=== PATIENT | female | born 2000 | race Two or more races ===

== ENCOUNTER 2020-06-01 03:38 | Inpatient (IN) | payer BC ==
[~2020-06-01 03:38] MED LIST: Bupivacaine 0.25% 10 ML SDV ONE
[2020-06-01] MEDS ORDERED: Ampicillin 2 GM in Sodium Chloride 0.9% 100 ML IV ONE (04:00)
[2020-06-01] MEDS ORDERED: Ondansetron 4 MG/2 ML SDV IVPUSH PRN ×2 (04:20→07:30)
[2020-06-01] MEDS ORDERED: Calcium Carbonate 500 MG Tab.Chew PO PRN (04:20)
[2020-06-01] MEDS ORDERED: Sodium Chloride 0.9% 10 ML Syringe FLUSH PRN (04:20)
[2020-06-01] MEDS ORDERED: Nalbuphine 10 MG/ML Syringe IVPUSH PRN (04:20)
[2020-06-01] MEDS ORDERED: Oxytocin/Lactated Ringers 10 UNIT/1,000 ML BAG IV SCH ×2 (04:30)
[2020-06-01] MEDS: Lactated Ringers 1,000 ML IV SCH ×3 (04:59→09:42)
[2020-06-01] MEDS ORDERED: Acetaminophen 325 MG Tab PO PRN ×2 (06:55→18:22)
--- NOTE | 2020-06-01 07:24 | PCM.LDHP ---
L&D History of Present Illness - General Date of Service: 06/01/20 Admit Problem/Dx: Patient Status Order with Admit Dx/Problem 06/01/20 03:49 Patient Status [ADT] Routine 06/01/20 04:20 Patient Status [ADT] Routine Admission Diagnosis/Problem Admission Diagnosis/Problem Source of Information: Patient History Limitations: Reports: No Limitations - History of Present Illness Introduction:: Patient is a 19 y/o at 39 5/7 wks who presented to L&D early this AM with complaints of SROM which occurred right before midnight. Currently doing well. Rates contractions as a 5/10 after being started on pitocin. 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 : 2 Para: 0 LMP (Approximate): Psychiatric History: Reports: Anxiety, Depression - Past Surgical History HEENT Surgical History: Reports: Tonsillectomy Female Surgical History: Reports: D&C Social & Family History - Tobacco Use Smoking Status *Q: Never Smoker - Alcohol Use Alcohol Use History: No - Recreational Drug Use Recreational Drug Use: No H&P Review of Systems - Review of Systems: Review Of Systems: See Below General: Reports: No Symptoms Pulmonary: Reports: No Symptoms Cardiovascular: Reports: No Symptoms Gastrointestinal: Reports: No Symptoms Genitourinary: Reports: No Symptoms Musculoskeletal: Reports: No Symptoms (d) L&D Exam - Exam Exam: See Below - Vital Signs Vital Signs: Last Vital Signs Temp 36.4 C 06/01/20 03:49 Pulse 110 H 06/01/20 03:49 Resp 16 06/01/20 03:49 BP 113/69 06/01/20 03:49 Pulse Ox 100 06/01/20 03:49 Weight: 84.55 kg - OB Specific Contraction Intensity: Mild to Moderate Movement: Active Heart Tones: Present Heart Tones per Min: 150 Heart Rate (FHR) Variability: Moderate (6-25 bmp) Presentation: Vertex - Patel Score Patel Score Cervix Position: Midposition Patel Score Consistency: Soft Patel Score Effacement: 51-70% Patel Score Dilation: 3-4 cm Patel Score Infant's Station: -2 Patel Score Total: 8 - Exam General: Alert, Oriented, Cooperative Lungs: Clear to Auscultation, Normal Respiratory Effort Cardiovascular: Regular Rate, Regular Rhythm GI/Abdominal Exam: Soft, Non-Tender Genitourinary: Normal external exam - Patient Data Lab Results Last 24 hrs: Laboratory Results - last 24 hr 06/01/20 06/01/20 06/01/20 Range/Units 04:00 04:29 04:36 WBC 12.69 H (3.98-10.04) K/mm3 RBC 3.89 L (3.98-5.22) M/mm3 Hgb 11.9 (11.2-15.7) gm/dl Hct 35.7 (34.1-44.9) % MCV 91.8 (79.4-94.8) fl MCH 30.6 (25.6-32.2) pg MCHC 33.3 (32.2-35.5) g/dl RDW Std Deviation 45.5 (36.4-46.3) fL Plt Count 205 (182-369) K/mm3 MPV 9.4 (9.4-12.3) fl Neut % (Auto) 64.5 (34.0-71.1) % Lymph % (Auto) 21.0 (19.3-51.7) % [place] % (Auto) 9.9 (4.7-12.5) % Eos % (Auto) 2.4 (0.7-5.8) Baso % (Auto) 0.5 (0.1-1.2) % Neut # (Auto) 8.20 H (1.56-6.13) K/mm3 Lymph # (Auto) 2.66 (1.18-3.74) K/mm3 [place] # (Auto) 1.25 H (0.24-0.36) K/mm3 Eos # (Auto) 0.30 (0.04-0.36) K/mm3 Baso # (Auto) 0.06 (0.01-0.08) K/mm3 Manual Slide Review Normal smear Membrane Rupture Positive H COVID-19 (MYRA) Negative (NEGATIVE) Result Diagrams: 06/01/20 04:29 - Problem List (1) 39 weeks gestation of SNOMED Code(s): 50722469 ICD Code: Z3A.39 - 39 WEEKS GESTATION OF Status: Acute Current Visit: Yes (2) SROM (spontaneous rupture of membranes) SNOMED Code(s): 122319378 ICD Code: SSM6389 - Status: Acute Current Visit: Yes (3) GBS (group B Streptococcus carrier), +RV culture, currently SNOMED Code(s): 9780803538960, 081602466, 6127290406152 ICD Code: O99.820 - STREPTOCOCCUS B CARRIER STATE COMPLICATING Status: Acute Current Visit: Yes Problem List Initiated/Reviewed/Updated: Yes Orders Last 24hrs: Active Orders 24 hr Category Date Time Status Patient Status [ADT] Routine ADT 06/01/20 04:20 Active Activity as Tolerated [RC] PFP Care 06/01/20 04:20 Active Communication Order [RC] ASDIRECTED Care 06/01/20 04:20 Active Heart Tones [RC] ASDIRECTED Care 06/01/20 04:20 Active Non Stress Test [RC] PER UNIT ROUTINE Care 06/01/20 03:49 Active Notify Provider [RC] PFP Care 06/01/20 04:20 Active Notify Provider [RC] PRN Care 06/01/20 04:20 Active Peripheral IV Care [RC] . DIRECTED Care 06/01/20 04:20 Active Vaginal Exam [RC] PRN Care 06/01/20 03:50 Active Vital Signs [RC] PER UNIT ROUTINE Care 06/01/20 03:49 Active Regular Diet [DIET] Diet 06/01/20 Breakfast Active BLOOD BANK HOLD SPECIMEN [BBK] Stat Lab 06/01/20 04:20 Ordered RAPID PLASMA REAGIN,RPR [CHEM] Routine Lab 06/01/20 04:29 Received Acetaminophen [Tylenol] Med 06/01/20 06:55 Active 650 mg PO Q4H PRN Ampicillin 1 gm Med 06/01/20 08:00 Active Sodium Chloride 0.9% [Normal Saline] 100 ml IV Q4H Calcium Carbonate [Tums] Med 06/01/20 04:20 Active 1,000 mg PO Q2H PRN Lactated Ringers [Ringers, Lactated] 1,000 ml Med 06/01/20 04:30 Active IV ASDIRECTED Nalbuphine [Nubain] Med 06/01/20 04:20 Active 10 mg IVPUSH Q2H PRN Ondansetron [Zofran] Med 06/01/20 04:20 Active 4 mg IVPUSH Q4H PRN Oxytocin/Lactated Ringers [Pitocin in LR 10 Units/1,000 Med 06/01/20 04:30 Active ML] 10 unit in 1,000 ml IV .CONTINUOUS Oxytocin/Lactated Ringers [Pitocin in LR 10 Units/1,000 Med 06/01/20 04:30 Ac tive ML] 10 unit in 1,000 ml IV TITRATE Sodium Chloride 0.9% [Saline Flush] Med 06/01/20 04:20 Active 10 ml FLUSH ASDIRECTED PRN Electronic Heart Tones Ext w TOCO [WOMSER] Oth 06/01/20 04:20 Ordered Routine Electronic Heart Tones Internal [WOMSER] Per Unit Ot 06/01/20 04:20 Ordered Routine Peripheral IV Insertion Adult [OM.PC] Routine Oth 06/01/20 04:20 Ordered Saline Lock Insert [OM.PC] Routine Oth 06/01/20 04:21 Ordered Resuscitation Status Routine Resus Stat 06/01/20 03:49 Ordered Medication Orders Acetaminophen (Tylenol) 650 mg PO Q4H PRN PRN Reason: Pain Calcium Carbonate/Glycine (Tums) 1,000 mg PO Q2H PRN PRN Reason: Indigestion Lactated Ringer's (Ringers, Lactated) 1,000 mls @ 100 mls/hr IV ASDIRECTED EVITA Last Admin: 06/01/20 04:59 Dose: 100 mls/hr Documented by: KELSEY Ampicillin Sodium 1 gm/ Sodium (Chloride) 100 mls @ 200 mls/hr IV Q4H EVITA Oxytocin/Lactated Ringer's (Pitocin In Lr 10 Units/1,000 Ml) 10 unit in 1,000 mls @ 500 mls/hr IV .CONTINUOUS EVITA Oxytocin/Lactated Ringer's (Pitocin In Lr 10 Units/1,000 Ml) 10 unit in 1,000 mls @ 12 mls/hr IV TITRATE EVITA; Protocol Last Titration: 06/01/20 06:50 Dose: 6 munits/min, 36 mls/hr Documented by: Titration: 06/01/20 05:44 Dose: 4 munits/min, 24 mls/hr Documented by: Admin: 06/01/20 05:00 Dose: 2 munits/min, 12 mls/hr Documented by: KELSEY Nalbuphine HCl (Nubain) 10 mg IVPUSH Q2H PRN PRN Reason: Pain Ondansetron HCl (Zofran) 4 mg IVPUSH Q4H PRN PRN Reason: Nausea/Vomiting Sodium Chloride (Saline Flush) 10 ml FLUSH ASDIRECTED PRN PRN Reason: Keep Vein Open Assessment/Plan Comment:: * Labs done * GBS positive, on Ampicillin * On pitocin for augmentation * Pain management per patient preference * Anticipate
[2020-06-01] MEDS ORDERED: fentaNYL 100 MCG/2 ML SDV EPIDUR PRN (07:30)
[2020-06-01] MEDS ORDERED: Phenylephrine 1 MG in Sodium Chloride 0.9% 10 ML IV SCH (07:30)
[2020-06-01] MEDS ORDERED: ePHEDrine 50 MG/ML SDV IVPUSH PRN (07:30)
[2020-06-01] MEDS ORDERED: Bupivacaine/fentaNYL/NS 100 ML Bag EPIDUR SCH (07:30)
--- NOTE | 2020-06-01 07:30 | PCM.PREANE ---
Preanesthetic Assessment - Procedure Proposed Procedure: Epidural - Anesthesia/Transfusion/Family Hx Anesthesia History: Prior Anesthesia Without Reaction Family History of Anesthesia Reaction: No Transfusion History: No Prior Transfusion(s) Intubation History: Unknown - Review of Systems General: No Symptoms Pulmonary: No Symptoms (History of asthma) Cardiovascular: No Symptoms Gastrointestinal: No Symptoms (GERD), Diarrhea, Nausea, Vomiting Neurological: No Symptoms (motion sickness) Other: Reports: Easy Bleeding, Easy Bruising, Sinus Problem (rhinitis with allergies), Depression, Anxiety - Physical Assessment NPO Status Date: 06/01/20 NPO Status Time: 06:30 Vital Signs: Last Vital Signs Temp 36.4 C 06/01/20 03:49 Pulse 110 H 06/01/20 03:49 Resp 16 06/01/20 03:49 BP 113/69 06/01/20 03:49 Pulse Ox 100 06/01/20 03:49 Height: 1.6 m Weight: 84.55 kg ASA Class: 2 Mental Status: Alert & Oriented x3 Airway Class: Mallampati = 2 Dentition: Reports: Normal Dentition, Caries Thyro-Mental Finger Breadths: 3 Mouth Opening Finger Breadths: 3 ROM/Head Extension: Full Lungs: Clear to Auscultation, Normal Respiratory Effort Cardiovascular: Regular Rate, Regular Rhythm, No Murmurs - Lab Values: Laboratory Last Values WBC 12.69 K/mm3 (3.98-10.04) H 06/01/20 04:29 RBC 3.89 M/mm3 (3.98-5.22) L 06/01/20 04:29 Hgb 11.9 gm/dl (11.2-15.7) 06/01/20 04:29 Hct 35.7 % (34.1-44.9) 06/01/20 04:29 MCV 91.8 fl (79.4-94.8) 06/01/20 04:29 MCH 30.6 pg (25.6-32.2) 06/01/20 04:29 MCHC 33.3 g/dl (32.2-35.5) 06/01/20 04:29 RDW Std Deviation 45.5 fL (36.4-46.3) 06/01/20 04:29 Plt Count 205 K/mm3 (182-369) 06/01/20 04:29 MPV 9.4 fl (9.4-12.3) 06/01/20 04:29 Neut % (Auto) 64.5 % (34.0-71.1) 06/01/20 04:29 Lymph % (Auto) 21.0 % (19.3-51.7) 06/01/20 04:29 Lane % (Auto) 9.9 % (4.7-12.5) 06/01/20 04:29 Eos % (Auto) 2.4 (0.7-5.8) 06/01/20 04:29 Baso % (Auto) 0.5 % (0.1-1.2) 06/01/20 04:29 Neut # (Auto) 8.20 K/mm3 (1.56-6.13) H 06/01/20 04:29 Lymph # (Auto) 2.66 K/mm3 (1.18-3.74) 06/01/20 04:29 Lane # (Auto) 1.25 K/mm3 (0.24-0.36) H 06/01/20 04:29 Eos # (Auto) 0.30 K/mm3 (0.04-0.36) 06/01/20 04:29 Baso # (Auto) 0.06 K/mm3 (0.01-0.08) 06/01/20 04:29 Manual Slide Review Normal smear 06/01/20 04:29 Membrane Rupture Positive H 06/01/20 04:00 COVID-19 (MYRA) Negative (NEGATIVE) 06/01/20 04:36 Above labs reviewed and noted and within acceptable ranges to proceed with epidural if desired. 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: , 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 Psychiatric History: Reports: Anxiety, Depression - Past Surgical History HEENT Surgical History: Reports: Tonsillectomy Female Surgical History: Reports: D&C - SUBSTANCE USE Smoking Status *Q: Never Smoker Recreational Drug Use History: No - HOME MEDS Home Medications: Home Meds Acetaminophen [Tylenol] 1,000 mg PO 06/01/20 [History] Ferrous Sulfate [Iron] 325 mg PO 06/01/20 [History] Vits #93/Iron Fum/FA [ Formula Tablet] 06/01/20 [History] diphenhydrAMINE HCL [Unisom] 25 mg PO BEDTIME PRN 06/01/20 [History] - CURRENT (IN HOUSE) MEDS Current Meds: Current Medications Acetaminophen (Tylenol) 650 mg PO Q4H PRN PRN Reason: Pain Calcium Carbonate/Glycine (Tums) 1,000 mg PO Q2H PRN PRN Reason: Indigestion Lactated Ringer's (Ringers, Lactated) 1,000 mls @ 100 mls/hr IV ASDIRECTED EVITA Last Admin: 06/01/20 04:59 Dose: 100 mls/hr Documented by: Ampicillin Sodium 1 gm/ Sodium (Chloride) 100 mls @ 200 mls/hr IV Q4H EVITA Oxytocin/Lactated Ringer's (Pitocin In Lr 10 Units/1,000 Ml) 10 unit in 1,000 mls @ 500 mls/hr IV .CONTINUOUS EVITA Oxytocin/Lactated Ringer's (Pitocin In Lr 10 Units/1,000 Ml) 10 unit in 1,000 mls @ 12 mls/hr IV TITRATE EVITA; Protocol Last Titration: 06/01/20 06:50 Dose: 6 munits/min, 36 mls/hr Documented by: Nalbuphine HCl (Nubain) 10 mg IVPUSH Q2H PRN PRN Reason: Pain Ondansetron HCl (Zofran) 4 mg IVPUSH Q4H PRN PRN Reason: Nausea/Vomiting Sodium Chloride (Saline Flush) 10 ml FLUSH ASDIRECTED PRN PRN Reason: Keep Vein Open Discontinued Medications Ampicillin Sodium 2 gm/ Sodium (Chloride) 100 mls @ 200 mls/hr IV ONETIME ONE Stop: 06/01/20 04:29 Last Admin: 06/01/20 05:00 Dose: 200 mls/hr Documented by:
[2020-06-01] MEDS ORDERED: Ampicillin 1 GM in Sodium Chloride 0.9% 100 ML IV SCH (08:00)
[2020-06-01] MEDS: Ampicillin 1 GM in Sodium Chloride 0.9% 100 ML IV SCH ×3 (09:15→18:21)
--- NOTE | 2020-06-01 17:18 | PCM.DEL ---
L & D Note - General Info Date of Service: 06/01/20 - Delivery Note Labor: Augmented by Oxytocin Delivery Outcome: Livebirth Delivery Method: Spontaneous Vaginal Delivery-Single Delivery Mode: Spontaneous Presentation: Right Occiput Anterior (KIM) Nuchal Cord: Present Anesthesia Type: Epidural Amniotic Fluid Description: Clear Episiotomy Type: None Laceration: None Placenta: Intact, Spontaneous Cord: 3 Vessels Estimated Blood Loss: 100 Resuscitation Needed: Yes [place]: Bulb Syringe, Stimulated, Warmed, [place] Used, Warmer Used Delivery Comments (Free Text/Narrative):: Patient found to be complete and began pushing. With maternal pushing effort head delivered from KIM presentation. Tight nuchal cord present and not able to be reduced. With gentle downward traction the shoulders and body did not immediately deliver. Patient placed in McRobert's and suprapubic pressure applied. Anterior shoulder and rest of body delivered in less than 30 seconds. Baby placed on maternal abdomen. Cord clamped and cut. Cord blood obtained. Placenta allowed time to separate and expelled intact. Slight trailing membranes noted in lower uterine segment which were grasped and extracted. Inspection of the perineum showed no lacerations - General Info Date of Service: 06/01/20 - Patient Data Vitals - Most Recent: Last Vital Signs Temp 36.4 C 06/01/20 03:49 Pulse 110 H 06/01/20 03:49 Resp 16 06/01/20 03:49 BP 113/69 06/01/20 03:49 Pulse Ox 100 06/01/20 03:49 Weight - Most Recent: 84.55 kg I&O - Last 24 Hours: Intake & Output 06/01/20 06/01/20 06/01/20 06:59 14:59 22:59 Intake Total 100 Balance 100 Med Orders - Current: - Problem List & Annotations (1) 39 weeks gestation of SNOMED Code(s): 93536926 Code(s): Z3A.39 - 39 WEEKS GESTATION OF Status: Acute Current Visit: Yes (2) SROM (spontaneous rupture of membranes) SNOMED Code(s): 242538929 Code(s): GSI8793 - Status: Acute Current Visit: Yes (3) GBS (group B Streptococcus carrier), +RV culture, currently SNOMED Code(s): 9497269598327, 998323180, 0045914036736 Code(s): O99.820 - STREPTOCOCCUS B CARRIER STATE COMPLICATING Status: Acute Current Visit: Yes (4) Vaginal delivery SNOMED Code(s): 225666034 Code(s): O80 - ENCOUNTER FOR FULL-TERM UNCOMPLICATED DELIVERY Status: Acute Current Visit: Yes (5) Shoulder dystocia during labor and delivery, delivered SNOMED Code(s): 600861265, 619796254 Code(s): O66.0 - OBSTRUCTED LABOR DUE TO SHOULDER DYSTOCIA Status: Acute Current Visit: Yes - Problem List Review Problem List Initiated/Reviewed/Updated: Yes - My Orders Last 24 Hours: My Active Orders 06/01/20 03:49 Non Stress Test [RC] PER UNIT ROUTINE Vital Signs [RC] PER UNIT ROUTINE Resuscitation Status Routine 06/01/20 04:20 Patient Status [ADT] Routine Activity as Tolerated [RC] PFP Communication Order [RC] ASDIRECTED Notify Provider [RC] PFP Notify Provider [RC] PRN Peripheral IV Care [RC] . DIRECTED BLOOD BANK HOLD SPECIMEN [BBK] Stat Calcium Carbonate [Tums] 1,000 mg PO Q2H PRN Nalbuphine [Nubain] 10 mg IVPUSH Q2H PRN Ondansetron [Zofran] 4 mg IVPUSH Q4H PRN Sodium Chloride 0.9% [Saline Flush] 10 ml FLUSH ASDIRECTED PRN Electronic Heart Tones Ext w TOCO [WOMSER] Routine Electronic Heart Tones Internal [WOMSER] Per Unit Routine Peripheral IV Insertion Adult [OM.PC] Routine 06/01/20 04:21 Saline Lock Insert [OM.PC] Routine 06/01/20 04:29 RAPID PLASMA REAGIN,RPR [CHEM] Routine 06/01/20 04:30 Lactated Ringers [Ringers, Lactated] 1,000 ml IV ASDIRECTED Oxytocin/Lactated Ringers [Pitocin in LR 10 Units/1,000 ML] 10 unit in 1,000 ml IV .CONTINUOUS Oxytocin/Lactated Ringers [Pitocin in LR 10 Units/1,000 ML] 10 unit in 1,000 ml IV TITRATE 06/01/20 06:55 Acetaminophen [Tylenol] 650 mg PO Q4H PRN 06/01/20 Breakfast Regular Diet [DIET] 06/01/20 09:00 Ampicillin 1 gm Sodium Chloride 0.9% [Normal Saline] 100 ml IV Q4H 06/01/20 17:16 Patient Status Manage Transfer [TRANSFER] Routine - Assessment Assessment:: PPD#0 - Plan Plan:: * Routine cares * Breast feeding * Discharge home in 1-2 days
[2020-06-01] MEDS ORDERED: Docusate Sodium 100 MG Cap PO PRN (18:22)
[2020-06-01] MEDS ORDERED: Benzocaine/Menthol 20%-0.5% Spray 56 GM Canister TOP PRN (18:22)
[2020-06-01] MEDS ORDERED: Witch Hazel Medicated Pads 40/Jar TOP PRN (18:22)
[2020-06-01] MEDS: Ibuprofen 600 MG Tab PO PRN (21:25)
[2020-06-02] MEDS: Ibuprofen 600 MG Tab PO PRN ×2 (04:00→16:48)
--- NOTE | 2020-06-02 04:36 | PCM48HPAN ---
Post Anesthesia Note - EVALUATION WITHIN 48HRS OF ANESTHETIC Vital Signs in Normal Range: Yes Patient Participated in Evaluation: Yes Respiratory Function Stable: Yes Airway Patent: Yes Cardiovascular Function Stable: Yes Hydration Status Stable: Yes Pain Control Satisfactory: Yes Nausea and Vomiting Control Satisfactory: Yes Mental Status Recovered: Yes Vital Signs: Last Vital Signs Temp 36.6 C 06/02/20 03:29 Pulse 80 06/02/20 03:29 Resp 16 06/02/20 03:29 BP 108/71 06/02/20 03:29 Pulse Ox 97 06/02/20 03:29
--- NOTE | 2020-06-02 07:45 | PCM.SN.2 ---
- Free Text/Narrative Note: note: Patient is doing well in the period. Minimal lochia, voiding well, ambulated without problems. She is nursing with no concerns. Patient is afebrile, vital signs are stable Abdomen is flat, soft, uterus is below the umbilicus and is firm and nontender. Legs are nontender. Assessment: recovery going well. Plan: Routine care. Patient be discharged home within the next 24-48 hours.
[2020-06-03] MEDS: Ibuprofen 600 MG Tab PO PRN
--- NOTE | 2020-06-03 10:31 | PCM.DCSUM1 ---
Discharge Summary - Hospital Course Free Text/Narrative:: Carmen is a 19-year-old 2 now para 1-0-1-1 female who was admitted with spontaneous rupture membranes on 06/01/2020. She was monitored with electronic monitoring, was noted to progressed but was augmented with oxytocin. She delivered a viable, arana baby in a right occiput anterior position 06/01/2020. There was a tight nuchal cord present which was reducible. The patient delivered with suprapubic pressure and Bandar maneuver. Findings consistent with a shoulder dystocia. patient is done well. She is breast-feeding with some frustration but generally doing well. She has received [employer] soa consultant input. She is informed of the availability of consultation after discharge home. She is reporting minimal lochia, is voiding well and ambulating without concerns. Her vital signs have been stable and she has been afebrile in the . She is desiring discharge home. Diagnosis: Stroke: No - Discharge Data Discharge Date: 06/03/20 Discharge Disposition: Home, Self-Care 01 Condition: Good - Referral to Home Health Primary Care Physician: Maria R Avila MD - Patient Instructions Diet: Regular Diet as Tolerated (Nursing diet with increased calories and calcium as recommended) Activity: As Tolerated (No intercourse or tampons until bleeding resolves) Driving: May Drive Today Showering/Bathing: May Shower Showering/Bathing, Other: May take a bath Notify Provider of: Fever, Increased Pain, Swelling and Redness, Nausea and/or Vomiting - Discharge Plan Home Medications: Home Meds Ferrous Sulfate [Iron] 325 mg PO 06/01/20 [History] Vits #93/Iron Fum/FA [ Formula Tablet] 06/01/20 [History] diphenhydrAMINE HCL [Unisom] 25 mg PO BEDTIME PRN 06/01/20 [History] Acetaminophen [Tylenol] 650 mg PO Q4H PRN tablet 06/03/20 [Rx] Ibuprofen [Motrin] 600 mg PO Q6H PRN tablet 06/03/20 [Rx] Referrals: Maria R Avila MD [Primary Care Provider] - (Patient is to call [facility] for a post appointment.) - Discharge Summary/Plan Comment DC Time >30 min.: No Discharge Summary/Plan Comment: Discharge instructions: 1. Discharge home 2. Diet, activity and follow-up discussed with patient. Recommend nursing diet with increased calories and calcium. 3. Precautions given concern increased pain, bleeding, temperature, signs/symptoms of DVT/PE. 4. Medications per home medication was printed, discussed with and given to the patient. [facility]. [id number]. Diagnosis: Term -delivered Condition: Good - Patient Data Vitals - Most Recent: Last Vital Signs Temp 36.5 C 06/03/20 08:14 Pulse 76 06/03/20 08:14 Resp 18 06/03/20 08:14 BP 117/68 06/03/20 08:14 Pulse Ox 98 06/03/20 08:14 Weight - Most Recent: 84.55 kg Med Orders - Current: Current Medications Acetaminophen (Tylenol) 650 mg PO Q4H PRN PRN Reason: mild pain or fever Benzocaine/Menthol (Dermoplast Pain Relief [place]) 0 gm TOP ASDIRECTED PRN PRN Reason: Perineal Comfort Measure Last Admin: 06/01/20 21:30 Dose: 1 canister Documented by: Docusate Sodium (Colace) 100 mg PO BID PRN PRN Reason: Constipation Ibuprofen (Motrin) 600 mg PO Q6H PRN PRN Reason: Mild pain or fever Last Admin: 06/03/20 00:00 Dose: 600 mg Documented by: Tima Lynn ([facility]) 1 pad TOP ASDIRECTED PRN PRN Reason: Perineal Comfort Measure Last Admin: 06/01/20 21:30 Dose: 1 container Documented by: Discontinued Medications Acetaminophen (Tylenol) 650 mg PO Q4H PRN PRN Reason: Pain Calcium Carbonate/Glycine (Tums) 1,000 mg PO Q2H PRN PRN Reason: Indigestion Ephedrine Sulfate (Ephedrine Sulfate) 5 mg IVPUSH ASDIRECTED PRN PRN Reason: Hypotension Fentanyl (Sublimaze) 100 mcg EPIDUR Q3H PRN PRN Reason: Pain Last Admin: 06/01/20 08:51 Dose: 100 mcg Documented by: Fentanyl/Bupivacaine HCl (Fentanyl/Bupivacaine/Ns 2 Mcg-0.125% 100 Ml) 100 ml EPIDUR ASDIRECTED EVITA Last Admin: 06/01/20 08:51 Dose: 100 ml Documented by: Lactated Ringer's (Ringers, Lactated) 1,000 mls @ 100 mls/hr IV ASDIRECTED EVITA Last Admin: 06/01/20 09:42 Dose: 100 mls/hr Documented by: Ampicillin Sodium 2 gm/ Sodium (Chloride) 100 mls @ 200 mls/hr IV ONETIME ONE Stop: 06/01/20 04:29 Last Admin: 06/01/20 05:00 Dose: 200 mls/hr Documented by: Ampicillin Sodium 1 gm/ Sodium (Chloride) 100 mls @ 200 mls/hr IV Q4H EVITA Oxytocin/Lactated Ringer's (Pitocin In Lr 10 Units/1,000 Ml) 10 unit in 1,000 mls @ 500 mls/hr IV .CONTINUOUS EVITA Oxytocin/Lactated Ringer's (Pitocin In Lr 10 Units/1,000 Ml) 10 unit in 1,000 mls @ 12 mls/hr IV TITRATE EVITA; Protocol Last Titration: 06/01/20 12:40 Dose: 4 munits/min, 24 mls/hr Documented by: Phenylephrine HCl 1 mg/ Sodium (Chloride) 10.1 mls @ 1 mls/sec IV TITRATE EVITA; Protocol Ampicillin Sodium 1 gm/ Sodium (Chloride) 100 mls @ 200 mls/hr IV Q4H EVITA Last Admin: 06/01/20 18:21 Dose: Not Given Documented by: Nalbuphine HCl (Nubain) 10 mg IVPUSH Q2H PRN PRN Reason: Pain Last Admin: 06/01/20 07:47 Dose: 10 mg Documented by: Ondansetron HCl (Zofran) 4 mg IVPUSH Q4H PRN PRN Reason: Nausea/Vomiting Last Admin: 06/01/20 09:33 Dose: 4 mg Documented by: Ondansetron HCl (Zofran) 4 mg IVPUSH ONETIME PRN PRN Reason: Nausea/Vomiting Sodium Chloride (Saline Flush) 10 ml FLUSH ASDIRECTED PRN PRN Reason: Keep Vein Open
== END 2020-06-03 11:40 | disposition home or self-care (01) | DRG 560 ==
LOC: JD.OBCHECK 03:38 → JD.OB 03:53 → JD.OBCHECK 04:20 → JD.OB 04:55 → OBSVTOIN 17:00 → JD.OB 17:01
PROVIDERS: ADMIT Obstetrics & Gynecology; ATTEND Obstetrics & Gynecology
PROC: 10E0XZZ Delivery of Products of Conception, External Approach (ICD-10-PCS; principal; 2020-06-01)
PROC: 3E0R3BZ Introduction of Anesthetic Agent into Spinal Canal, Percutaneous Approach (ICD-10-PCS; 2020-06-01)
PROC: 00HU33Z Insertion of Infusion Device into Spinal Canal, Percutaneous Approach (ICD-10-PCS; 2020-06-01)
DX: O69.1XX0 Labor and delivery complicated by cord around neck, with compression, not applicable or unspecified (principal); Z37.0 Single live birth; Z3A.39 39 weeks gestation of pregnancy; O99.344 Other mental disorders complicating childbirth; F41.9 Anxiety disorder, unspecified; F32.9 Major depressive disorder, single episode, unspecified; O99.824 Streptococcus B carrier state complicating childbirth
CPT/HCPCS: 01967; 36415; 51702; 59025; 59409; 84112; 85025; 86592; A9270-GY; J0290; J2300; J2405; J2590; J3010; J3490; J7050; J7120; U0002